=== PATIENT | male | born 1965 | race American Indian/Alaskan Native ===

== ENCOUNTER 2016-08-06 09:51 | Outpatient (CLI) | payer OTHER ==
--- NOTE | 2016-08-06 15:03 | Cat Scan Report ---
CT ABDOMEN AND PELVIS WITHOUT CONTRAST INDICATION: Colon cancer. COMPARISON: 02/16/2014 CT and 04/26/[address] images. FINDINGS: Noncontrast abdomen and pelvis CT performed. Oral contrast given. LUNG BASES: Top normal heart size. Slight left basilar scarring. ABDOMEN: Please note that sensitivity to detect small visceral lesions is limited due to the absence of intravenous contrast. Stable cholecystectomy clips. Severe chronic left renal obstruction with a thin cortical rim noted unchanged since April 2016 with mildly dilated left proximal ureter again trapped/encased by an approximately 3.2 x 2.2 cm soft tissue mass with few intrinsic densities/calcifications contiguous with the left psoas muscle as on axial series 2, image 200, amongst others, measuring approximately 4 cm craniocaudal. This mass/possible lymph node also again appears extending to the aorta as on axial image 187, series 2 measuring approximately 1.2 cm. Otherwise grossly unremarkable unenhanced liver, spleen, pancreas, adrenals, nonaneurysmal abdominal aorta with few atherosclerotic calcifications, IVC and right kidney. Few abdominal surgical clips may represent prior bowel surgery/resection. Normal appendix. Mild colonic stool/possible constipation. Healed postsurgical changes along the anterior abdominal wall also noted with attenuation/thinning about the umbilicus and evidence of prior left lower quadrant ostomy. PELVIS: Mildly enlarged prostate may be correlated for clinically and with PSA. Grossly unremarkable unenhanced remainder urinary bladder and the rectosigmoid. Few small pelvic phleboliths. Few small bilateral inguinal lymph nodes again noted. Severe L2-L3 disc loss with endplate irregularities and sclerosis noted. Mild left SI joint degenerative bridging. Mild lower thoracic spine degenerative spurring as well. CONCLUSION: 1. No significant interval change in chronic left hydronephrosis and left proximal hydroureter, entrapped by known, abnormal left retroperitoneal/psoas soft tissue mass, as above. 2. Various other stable incidental findings, including abdominal postsurgical changes and severe L2-L3 chronic degenerative changes, amongst others, as described. Thank you for the opportunity to participate in this patient's care.
== END 2016-08-06 09:52 | disposition home or self-care (01) ==
LOC: CT 09:51
DX: C18.6 Malignant neoplasm of descending colon (principal); N40.0 Benign prostatic hyperplasia without lower urinary tract symptoms; N28.89 Other specified disorders of kidney and ureter; I70.0 Atherosclerosis of aorta; I87.8 Other specified disorders of veins; M47.896 Other spondylosis, lumbar region; Z90.49 Acquired absence of other specified parts of digestive tract
CPT/HCPCS: 36415; 74176; 82565; 84520

== ENCOUNTER 2016-11-01 09:01 | Outpatient (CLI) | payer OTHER ==
--- NOTE | 2016-11-02 13:36 | PET Report ---
PET/CT:11/01/16 09:01:00 CLINICAL: Colon cancer restaging. RADIOPHARMACEUTICAL: 15.25mCi F18-FDG. COMPARISON: 04/26/16 PET/CT TECHNIQUE- Following intravenous injection of F-18 FDG and an approximately 60 minute uptake period, CT and PET images from the mid skull to the upper thighs were acquired with the patient in the fasted state. No contrast was administered. The CT protocol used for this PET CT study is designed for attenuation correction and anatomic localization of PET abnormalities. This steam crane operator CT is not desired to produce and cannot replace, [id number] diagnostic CT scans with specific imaging protocols for different body parts and indications. Plasma glucose at the time of this test: 115g/dl. The standardized uptake values (SUV) are normalized to patient body weight and indicate the highest activity concentration (SUV max) in a given disease site. FINDINGS: Brain--Physiologic FDG uptake in the visualized regions of the brain. Neck--Physiologic FDG uptake . Chest--Physiologic FDG uptake in mediastinal blood pool and myocardium. Lungs--No abnormal uptake. However, a 5 mm non-FDG avid noncalcified right upper lobe peripheral lung nodule and a 6 mm non-FDG avid noncalcified lingular lung nodule. Pleura/pericardium--No abnormal uptake. Thoracic nodes--No abnormal uptake. Hepatobiliary--No abnormal uptake. Liver background SUV mean, as a reference for comparing FDG studies, is 4.8 compared to 5.0 on the last exam. No liver mass. Spleen--No abnormal uptake. Pancreas--No abnormal uptake. Adrenal Glands--No abnormal uptake. Kidneys/Ureters/Bladder--No abnormal uptake. Stable severe left hydronephrosis with obstruction of the left ureter along the left psoas muscle. Abdominopelvic Nodes--Stable size left psoas mass measuring approximately 5 x 5 x 4 cm. Although the overall FDG uptake is less than on the prior exam, the SUV max now measures 10.8 compared to 6.4 on the last exam. Stable size left periaortic FDG avid lymph node which is inseparable from the aorta with HCV 7.9 compared to 6.8 on the last exam. Bowel/Peritoneum/Mesentery--No abnormal uptake. Pelvic organs--No abnormal uptake. Bones/Soft Tissues--No abnormal uptake. IMPRESSION-1. A 5 mm non-FDG avid right upper lobe lung nodule and a 6 mm non-FDG avid lingular lung nodule are both suspicious for metastasis. 2. Stable size left psoas mass obstructing the left ureter. However greater FDG uptake within the mass and within a stable size left periaortic lymph node. 3. Stable left hydronephrosis.
== END 2016-11-01 09:02 | disposition home or self-care (01) ==
LOC: PET 09:01
DX: C18.9 Malignant neoplasm of colon, unspecified (principal); R91.1 Solitary pulmonary nodule; N13.1 Hydronephrosis with ureteral stricture, not elsewhere classified
CPT/HCPCS: 78815; 82962; A9552

== ENCOUNTER 2017-10-11 10:22 | Outpatient (CLI) | payer MEDICARE ==
--- NOTE | 2017-10-14 10:31 | Magnetic Resonance Report ---
MRI LUMBAR SPINE WITHOUT CONTRAST HISTORY: Malignant neoplasm of the descending colon. TECHNIQUE: axial T1, T2. sagittal T1,T2, STIR. COMPARISON: Correlation is made with the CT abdomen pelvis dated 08/06/16 and 02/16/14. PET CT dated 11/01/16. FINDINGS: Comment: Please note the patient terminated the examination early secondary to pain. Axial T2 imaging could not be obtained. The conus terminates at L1. No signal abnormality or mass. The cauda equina is within normal limits. No central canal stenosis is appreciated. There is normal height and alignment of the lumbar vertebral bodies. No compression deformity or subluxation. There is an area of abnormal T1 signal and bone marrow edema in the lateral L3 vertebral body which measures up to 3.9 x 2.6 cm in axial plane. This is adjacent to a dilated left ureter and multiple surgical clips. This is suspicious for a focal osteomyelitis or solitary metastasis. IV contrast would be useful if the patient could cooperate and renal function allows. No other areas of abnormal bone signal. There is severe disc space narrowing and endplate irregularity at L2-3 which appears to represent chronic sequela of discitis. There is near-complete obliteration of the L2-3 disc space. Note definite acute discitis on today's exam. The remaining discs demonstrate mild narrowing and desiccation. No significant bulging disc or herniation. The axial images are limited without T2-weighted images. L1-2: No significant abnormality. L2-3: Chronic discitis findings no evidence for central canal stenosis. Mild left neural foraminal narrowing estimated at 25%. L3-4: Mild posterior bulging disc lateralizes to the left side. Mild facet arthropathy and hypertrophied ligamentum flavum. Left neural foraminal narrowing is estimated at 50%. L4-5: No significant abnormality. L5-S1: No significant abnormality. IMPRESSION: Slightly limited exam as described. There is abnormal bone marrow signal in the left lateral L3 vertebral body which is concerning for a focal osteomyelitis or solitary bone metastasis. I suspect an infectious etiology. Please correlate with the patient and consider additional imaging. Chronic discitis findings at L2-3.
== END 2017-10-11 10:23 | disposition home or self-care (01) ==
LOC: MRI 10:22
PROVIDERS: ATTEND Radiology Radiation Oncology
DX: M48.061 Spinal stenosis, lumbar region without neurogenic claudication (principal); M12.88 Other specific arthropathies, not elsewhere classified, other specified site; M24.28 Disorder of ligament, vertebrae; C18.6 Malignant neoplasm of descending colon
CPT/HCPCS: 72148